=== PATIENT | male | born 1995 | race Hispanic/Latino ===

== ENCOUNTER 2018-10-19 12:42 | Inpatient (IN) | payer OTHER ==
[~2018-10-19] VITALS: Ht 175.3 cm; Wt 96.1 kg
[2018-10-19 13:25] LABS: HEMATOCRIT 46.2 % (42.0-52.0); HEMOGLOBIN 16.1 g/dl (13.5-17.5); MEAN CORPUSCULAR HEMOGLOBIN 30.1 pg (27.0-33.0); MEAN CORPUSCULAR HGB CONC 34.8 g/dl (32.0-36.5); MEAN CORPUSCULAR VOLUME 86.5 fl (80.0-96.0); PLATELET COUNT, AUTOMATED 258 10^3/uL (150-450); RED BLOOD COUNT 5.34 10^6/uL (4.30-6.10); WHITE BLOOD COUNT 4.6 10^3/uL (4.0-10.0)
[2018-10-19 13:55] LABS: ACETAMINOPHEN LEVEL < 2.0 UG/ML (10.0-30.0); ALBUMIN 4.5 GM/DL (3.2-5.2); ALT/SGPT 48 U/L (12-78); BILIRUBIN,DIRECT 0.1 MG/DL (0.0-0.2); BILIRUBIN,TOTAL 0.4 MG/DL (0.2-1.0); BLOOD UREA NITROGEN 15 MG/DL (7-18); CALCIUM LEVEL 9.1 MG/DL (8.5-10.1); CARBON DIOXIDE LEVEL 28 MEQ/L (21-32); CHLORIDE LEVEL 107 MEQ/L (98-107); CREATININE FOR GFR 1.09 MG/DL (0.70-1.30); ETHYL ALCOHOL (ETHANOL) < 0.003 % (0.000-0.010); GLOMERULAR FILTRATION RATE > 60.0 (>60); GLUCOSE, FASTING 97 MG/DL (70-100); POTASSIUM SERUM 4.4 MEQ/L (3.5-5.1); SALICYLATE LEVEL < 1.7 MG/DL (5.0-30.0); SODIUM LEVEL 140 MEQ/L (136-145); TOTAL PROTEIN 7.8 GM/DL (6.4-8.2)
[2018-10-19 13:56] LABS: AMPHETAMINES LEVEL URINE NEGATIVE (NEGATIVE); BARBITURATES URINE NEGATIVE (NEGATIVE); BENZODIAZEPINES URINE NEGATIVE (NEGATIVE); CANNABINOIDS URINE NEGATIVE (NEGATIVE); COCAINE METABOLITE URINE NEGATIVE (NEGATIVE); METHADONE URINE NEGATIVE (NEGATIVE); OPIATES URINE NEGATIVE (NEGATIVE); PHENCYCLIDINE URINE NEGATIVE (NEGATIVE)
[2018-10-19] MEDS ORDERED: ACETAMINOPHEN TAB 650MG DOSE (2X325MG) PO PRN (17:15)
[2018-10-19] MEDS ORDERED: MOM 30ML SUSPENSION UDC PO PRN (17:15)
[2018-10-19] MEDS ORDERED: MAALOX 30 ML SUSP *UDC PO PRN (17:15)
[2018-10-19 18:59] VITALS: BP 130/78
[2018-10-20 06:31] VITALS: BP 120/66
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
--- NOTE | 2018-10-20 14:34 | HPEPDOC ---
General Date of Admission October 19, 2018 at 17:01 Attending Physician: SAILAJA VALLEJO MD Chief Complaint The patient is a 23-year-old male admitted with a reason for visit of Unspe cified Depressive Disorder. History of Present Illness Patient is a 23-year-old male, past medical history significant for obesity, depression, anxiety, admitted for suicidal ideation. Patient states he was driving home and kept thinking of going to a gun store to get a rifle to shoot himself, He was admitted to mental health for further evaluation and management. On evaluation, he is quite calm and able to maintain good conversation, he admits his thoughts although concerning are common occurrence for him. Home Medications No Active Prescriptions or Reported Meds Allergies Coded Allergies: No Known Allergies (Verified Allergy, Unknown, 10/19/18) Past Medical History Medical History Obesity Depression Anxiety Family History Significant Family History: No pertinent family hx Social History * Smoker: Denies Alcohol: Denies Drugs: denies A-FIB/CHADSVASC A-FIB History Current/History of A-Fib/PAF?: No Current Oral Anticoagulant The: No Review of Systems Other systems A 10 point pertinent review of systems was completed, negative except as stated in history of present illness Physical Examination Other physical findings General: NAD. Skin: Warm, dry, intact. Cardiovascular: Regular rate and rhythm, no MRG, no jugular venous distention, no edema. Respiratory:CTAB, no accessory muscle use noted. Abdomen: Bowel sounds +, no tenderness, no distention Musculoskeletal: No joint deformities, Neurologic: CN 2-12 grossly intact, alert and oriented 3 Psychiatric: Appropriate mood and affect, no anxiety or agitation. Vital Signs Vital Signs Date Time Temp Pulse Resp B/P (MAP) Pulse Ox O2 Delivery O2 Flow Rate FiO2 10/20/18 06:31 97.8 52 14 120/66 (84) 10/19/18 12:51 100 Room Air Assessment/Plan Obesity --Therapeutic lifestyle changes discussed Generalized anxiety disorder -Management by primary team Suicidal ideation -Management per primary team Plan / VTE VTE Prophylaxis Ordered?: No VTE Exclusion Pharmacological: At Low Risk for VTE JOE COTA October 20, 2018 14:34
[2018-10-20 18:25] VITALS: BP 132/65
[2018-10-20] MEDS: traZODone 50 MG TAB PO PRN (22:49)
[2018-10-21 06:29] VITALS: BP 137/65
[2018-10-21 18:00] VITALS: BP 135/73
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
[2018-10-21] MEDS: traZODone 50 MG TAB PO PRN (22:34)
[2018-10-22 06:37] VITALS: BP 106/57
[2018-10-22] MEDS ORDERED: SERTRALINE HCL 50 MG TAB PO ONE (14:45)
[2018-10-22 18:00] VITALS: BP 142/82
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
[2018-10-22] MEDS ORDERED: ARIPiprazole 2 MG TAB PO SCH (21:00)
[2018-10-22] MEDS: traZODone 50 MG TAB PO PRN (22:15)
[2018-10-23 06:46] VITALS: BP 110/53
[2018-10-23 10:20] VITALS: BP 131/79
[2018-10-23 18:15] VITALS: BP 127/64
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
[2018-10-23] MEDS: traZODone 50 MG TAB PO PRN (22:08)
[2018-10-23] MEDS: SERTRALINE HCL 50 MG TAB PO SCH (22:09)
[2018-10-24 06:59] VITALS: BP 114/59
[2018-10-24] MEDS: ARIPiprazole 2 MG TAB PO SCH (09:33)
[2018-10-24 18:00] VITALS: BP 139/65
--- NOTE | 2018-10-24 20:47 | MHIPNPDOC ---
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 He states that he now feels like he has no purpose & repeatedly used the word "trapped" when describing his life and how he feels. His supportive is here & both agree that they have a good marriage & he denies that their relationship is a source of his stress. He reports having plans for either causing a MVC [place], or purchasing a hunting rifle & killing himself via GSW. Patient reports being from [place], [place] & that [facility] was his first duty station. He says that he was very unhappy here & requested a year in [facility], just to get out. He states that following his year in [facility], instead of a new duty station, he was returned to [place]. This occured 3 months ago & admits that his depression & anxiety became evident again while in [facility], prior to his return here. In addition to the depression & SI, he describes suffering from significant anxiety. This included frequently awakening at night during sleep, allowing his phone battery to so that his unit can't reach him on the weekend & general anxiety that comes & goes." VITAL SIGNS: See below. NEW TEST RESULTS: See below CURRENT MEDICATIONS: See below. MENTAL STATUS EXAMINATION: Patient is a 23-year old male, who is alert, cooperative, dressed in hospital clothes, looking tired Speech: Is normal rate, tone and volume. Spontaneous and fluent, more talkative Language skills are fair Thought processes including: intact. Thought content:anxious and depressive thoughts, suicidal thoughts, paranoia, ideas of reference Description of abnormal or psychotic thoughts: Suicidal ideation, paranoid thoughts. Denies auditory hallucinations today Judgment: fair Insight: fair Orientation: x 3 Recent and remote memory: intact Attention span and concentration: fair Language: normal Fund of knowledge: average Mood: depressed/anxious Affect: congruent with mood, depressed DIAGNOSES: 1. Major Depressive Disorder, severe, recurrent with psychosis 2. ETOH use disorder 3. Other specified trauma/stressor disorder ASSESSMENT: The patient tells me today that he is not experiencing any emotions. He says this is nothing new. This is how he has felt for years. Sometimes he feels very depressed, sometimes he feels very anxious, sometimes he feels angry and sometimes he feels nothing. He has been feeling like that over the years, he thinks the first time that he felt nothing, was when he was 19 years old, when he stopped talking to his father. He questions his 's loyalty and faithfulness. He says that last night he was thinking about what would he do if she would be unfaithful. I ask him why is he having those thoughts and he tells me that before they got she cheated on him and he told her that he wou ldn't tolerate this. I told him that I spoke with one of his Nurses, Lili, yesterday about his because it is important for her to learn what depression is about and how to deal with it. He said that last night he talked to his about the booklet and both read some of it. MANAGEMENT PLAN: As above TIME SPENT: 20 minutes. Vital Signs Vital Signs Date Time Temp Pulse Resp B/P (MAP) Pulse Ox O2 Delivery O2 Flow Rate FiO2 10/24/18 18:00 99.5 60 16 139/65 (89) 10/24/18 09:03 Room Air 10/19/18 12:51 100 Current Medications Current Medications Acetaminophen (Tylenol Tab) 650 mg Q6HP PRN PO HEADACHE or DISCOMFORT; Start 10/19/18 at 17:15 Al Hydrox/Mg Hydrox/Simethicone (Mylanta) 30 ml Q4HP PRN PO HEARTBURN/INDIGESTION; Start 10/19/18 at 17:15 Aripiprazole (AbiLIFY) 2 mg QAM PO Last administered on 10/24/18at 09:33; Start 10/24/18 at 09:00 Aripiprazole (AbiLIFY) 2 mg QHS PO Last administered on 10/22/18at 22:15; Start 10/22/18 at 21:00; Stop 10/23/18 at 14:46; Status DC Home Med (Med Rec Complete!) ASDIRECTED XX ; Start 10/19/18 at 18:30; Stop 10/19/18 at 18:33; Status DC Magnesium Hydroxide (Milk Of Magnesia) 30 ml DAILYPRN PRN PO CONSTIPATION; Start 10/19/18 at 17:15 Sertraline HCl (Zoloft) 50 mg QHS PO Last administered on 10/23/18at 22:09; Start 10/22/18 at 21:00; Status Future hold Trazodone HCl (Desyrel) 50 mg QHSP PRN PO INSOMNIA Last administered on 10/23/18at 22:08; Start 10/19/18 at 17:15 Allergies Coded Allergies: No Known Allergies (Verified Allergy, Unknown, 10/19/18) GONZALEZ GLOVER MD October 24, 2018 20:47
[2018-10-24] MEDS: SERTRALINE HCL 50 MG TAB PO SCH (21:40)
[2018-10-24] MEDS: traZODone 50 MG TAB PO PRN (21:40)
[2018-10-25 07:18] VITALS: BP 112/66
[2018-10-25] MEDS: ARIPiprazole 2 MG TAB PO SCH (09:05)
[2018-10-25 18:40] VITALS: BP 138/74
--- NOTE | 2018-10-25 19:31 | MHIPNPDOC ---
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 He states that he now feels like he has no purpose & repeatedly used the word "trapped" when describing his life and how he feels. His supportive is here & both agree that they have a good marriage & he denies that their relationship is a source of his stress. He reports having plans for either causing a MVC [place], or purchasing a hunting rifle & killing himself via GSW. Patient reports being from [place], [place] & that [facility] was his first duty station. He says that he was very unhappy here & requested a year in [facility], just to get out. He states that following his year in [facility], instead of a new duty station, he was returned to [place]. This occured 3 months ago & admits that his depression & anxiety became evident again while in [facility], prior to his return here. In addition to the depression & SI, he describes suffering from significant anxiety. This included frequently awakening at night during sleep, allowing his phone battery to so that his unit can't reach him on the weekend & general anxiety that comes & goes." VITAL SIGNS: See below. NEW TEST RESULTS: See below CURRENT MEDICATIONS: See below. MENTAL STATUS EXAMINATION: Patient is a 23-year old male, who is alert, cooperative, dressed in hospital clothes, looking tired Speech: Is normal rate, tone and volume. Spontaneous and fluent, more talkative Language skills are fair Thought processes including: depressed, linear Thought content:anxious and depressive thoughts, suicidal thoughts, paranoia, ideas of reference Description of abnormal or psychotic thoughts: Suicidal ideation, paranoid thoughts. Denies AV hallucinations Judgment: poor Insight: poor Orientation: x 3 Recent and remote memory: intact Attention span and concentration: fair Language: normal Fund of knowledge: average Mood: depressed/anxious Affect: congruent with mood, depressed DIAGNOSES: 1. Major Depressive Disorder, severe, recurrent with psychosis 2. ETOH use disorder 3. Other specified trauma/stressor disorder ASSESSMENT: The patient says that he has been considering to go for longterm but he is waiting to talk about that with his . He says, once again, that he fears the way she is going to take this. He says that he has found in the past as if he could not have a conversation with her because he felt she didn't understand him and at the same time, he fears his reactions when he is with her because he has destroyed 3 I-phones ( on different occasions )when he has been arguing with her. He tells me now that he fears it could get out of control, that frequently he is able to leave the house and go for a walk before losing control but he is afraid he might not be able to do it all the time. He mentios that at times he has had a cocky attitude, just like his father did and this proposal manager writer asked him why would he want to have a cocky attitude like his dad if his father was not exactly a great dad or a great father? After that statement, he says that, yes, he shouldn't act like that. He told this proposal manager writer that he has had shopping sprees when he argues with his . The most recent one was for $1400.00 where he bought things he really didn't need and then, he got into trouble because they were sort of money. He says his doesn't work but she used to work before they got , she used to do nails but now that she is not working, she asks for the product (nail uzbek, etc.) and it gets mailed to her, she does her nails, takes pictures of her nails and uploads them on to [employer]. He mentions that she has [phone] followers on [employer]. He syas that she was very succesful before, she used to drive a BMW, "she did better than me". The patient continues to be very depressed, pretty hopless, helpless, paranoid, with SI. MANAGEMENT PLAN: As above TIME SPENT: 20 minutes. Vital Signs Vital Signs Date Time Temp Pulse Resp B/P (MAP) Pulse Ox O2 Delivery O2 Flow Rate FiO2 10/25/18 18:40 99.4 68 16 138/74 (95) 10/25/18 08:51 Room Air 10/19/18 12:51 100 Current Medications Current Medications Acetaminophen (Tylenol Tab) 650 mg Q6HP PRN PO HEADACHE or DISCOMFORT; Start 10/19/18 at 17:15 Al Hydrox/Mg Hydrox/Simethicone (Mylanta) 30 ml Q4HP PRN PO HEARTBURN/INDIGESTION; Start 10/19/18 at 17:15 Aripiprazole (AbiLIFY) 2 mg QAM PO Last administered on 10/25/18at 09:05; Start 10/24/18 at 09:00; Stop 10/25/18 at 15:03; Status DC Aripiprazole (AbiLIFY) 2 mg QHS PO Last administered on 10/22/18at 22:15; Start 10/22/18 at 21:00; Stop 10/23/18 at 14:46; Status DC Aripiprazole (AbiLIFY) 2.5 mg BID PO ; Start 10/25/18 at 21:00 Home Med (Med Rec Complete!) ASDIRECTED XX ; Start 10/19/18 at 18:30; Stop 10/19/18 at 18:33; Status DC Magnesium Hydroxide (Milk Of Magnesia) 30 ml DAILYPRN PRN PO CONSTIPATION; Start 10/19/18 at 17:15 Sertraline HCl (Zoloft) 50 mg QHS PO Last administered on 10/24/18at 21:40; Start 10/22/18 at 21:00; Stop 10/25/18 at 15:03; Status DC Sertraline HCl (Zoloft) 75 mg QHS PO ; Start 10/25/18 at 21:00 Trazodone HCl (Desyrel) 50 mg QHSP PRN PO INSOMNIA Last administered on 10/24/18at 21:40; Start 10/19/18 at 17:15 Allergies Coded Allergies: No Known Allergies (Verified Allergy, Unknown, 10/19/18) GONZALEZ GLOVER MD October 25, 2018 19:31
[2018-10-25] MEDS ORDERED: ARIPiprazole 2 MG TAB PO SCH (21:00)
[2018-10-25] MEDS: SERTRALINE HCL 50 MG TAB PO SCH (22:14)
[2018-10-25] MEDS: traZODone 50 MG TAB PO PRN (23:01)
[2018-10-26 06:41] VITALS: BP 106/54
[2018-10-26] MEDS: PILL CRUSHER/CUTTER 1 EACH XX PRN (09:53)
--- NOTE | 2018-10-26 16:29 | MHIPNPDOC ---
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 He states that he now feels like he has no purpose & repeatedly used the word "trapped" when describing his life and how he feels. His supportive is here & both agree that they have a good marriage & he denies that their relationship is a source of his stress. He reports having plans for either causing a MVC [place], or purchasing a hunting rifle & killing himself via GSW. Patient reports being from [place], [place] & that [facility] was his first duty station. He says that he was very unhappy here & requested a year in [facility], just to get out. He states that following his year in [facility], instead of a new duty station, he was returned to [place]. This occured 3 months ago & admits that his depression & anxiety became evident again while in [facility], prior to his return here. In addition to the depression & SI, he describes suffering from significant anxiety. This included frequently awakening at night during sleep, allowing his phone battery to so that his unit can't reach him on the weekend & general anxiety that comes & goes." VITAL SIGNS: See below. NEW TEST RESULTS: See below CURRENT MEDICATIONS: See below. MENTAL STATUS EXAMINATION: Patient is a 23-year old male, who is alert, cooperative, dressed in hospital clothes, looking tired Speech: Is normal rate, tone and volume. Spontaneous and fluent, more talkative Language skills are fair Thought processes including: depressed, linear Thought content:anxious and depressive thoughts, suicidal thoughts, paranoia, ideas of reference Description of abnormal or psychotic thoughts: Suicidal ideation, paranoid thoughts. Denies AV hallucinations Judgment: poor Insight: poor Orientation: x 3 Recent and remote memory: intact Attention span and concentration: fair Language: normal Fund of knowledge: average Mood: depressed/anxious Affect: congruent with mood, depressed DIAGNOSES: 1. Major Depressive Disorder, severe, recurrent with psychosis 2. ETOH use disorder 3. Other specified trauma/stressor disorder ASSESSMENT: The patient continues to report feeling "nothing", and he means no pain, no anger, no anxiety, no irritability, no depression. He knows in his mind that he is very sick but for 3 days in a row he has denied any type of feelings. He says he was able to sleep well for most of the night. He woke up at times, his appetite is still not at his best. He says he continues to feel helpless, hopeless, worthless, continues to endorse guilty feelings. He denies AV hallucinations and denies thought delusions. Health Assistant Danis Hauser spoke with the patient and indicated his [facility]A and [facility] accepted him going for long-term treatment. He will be going to [place] in [place] but there's no date yet, because his JAMILA still have to make flight arrangements. Patient was pleased to hear the news. MANAGEMENT PLAN: As above TIME SPENT: 20 minutes. Vital Signs Vital Signs Date Time Temp Pulse Resp B/P (MAP) Pulse Ox O2 Delivery O2 Flow Rate FiO2 10/26/18 06:41 99.3 68 12 106/54 (71) 10/25/18 08:51 Room Air Current Medications Current Medications Acetaminophen (Tylenol Tab) 650 mg Q6HP PRN PO HEADACHE or DISCOMFORT; Start 10/19/18 at 17:15 Al Hydrox/Mg Hydrox/Simethicone (Mylanta) 30 ml Q4HP PRN PO HEARTBURN/INDIGESTION; Start 10/19/18 at 17:15 Aripiprazole (AbiLIFY) 2 mg QAM PO Last administered on 10/25/18at 09:05; Start 10/24/18 at 09:00; Stop 10/25/18 at 15:03; Status DC Aripiprazole (AbiLIFY) 2 mg QHS PO Last administered on 10/22/18at 22:15; Start 10/22/18 at 21:00; Stop 10/23/18 at 14:46; Status DC Aripiprazole (AbiLIFY) 2.5 mg BID PO Last administered on 10/25/18at 22:14; Start 10/25/18 at 21:00; Stop 10/26/18 at 09:36; Status DC Aripiprazole (AbiLIFY) 2.5 mg BID PO Last administered on 10/26/18at 09:54; Start 10/26/18 at 09:00 Home Med (Med Rec Complete!) ASDIRECTED XX ; Start 10/19/18 at 18:30; Stop 10/19/18 at 18:33; Status DC Magnesium Hydroxide (Milk Of Magnesia) 30 ml DAILYPRN PRN PO CONSTIPATION; Start 10/19/18 at 17:15 Sertraline HCl (Zoloft) 50 mg QHS PO Last administered on 10/24/18at 21:40; Start 10/22/18 at 21:00; Stop 10/25/18 at 15:03; Status DC Sertraline HCl (Zoloft) 75 mg QHS PO Last administered on 10/25/18at 22:14; Start 10/25/18 at 21:00 Trazodone HCl (Desyrel) 50 mg QHSP PRN PO INSOMNIA Last administered on 9at 23:01; Start 10/19/18 at 17:15 Allergies Coded Allergies: No Known Allergies (Verified Allergy, Unknown, 10/19/18) GONZALEZ GLOVER MD October 26, 2018 16:29
[2018-10-26 18:00] VITALS: BP 157/89
[2018-10-26] MEDS ORDERED: BENZTROPINE 2 MG TAB PO ONE (20:00)
[2018-10-26] MEDS: SERTRALINE HCL 50 MG TAB PO SCH (20:38)
[2018-10-26] MEDS: traZODone 50 MG TAB PO PRN (22:01)
[2018-10-27 06:48] VITALS: BP 111/65
[2018-10-27] MEDS: hydrOXYzine 50 MG TAB PO PRN (13:28)
[2018-10-27 18:00] VITALS: BP 143/66
--- NOTE | 2018-10-27 18:08 | MHIPNPDOC ---
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 He states that he now feels like he has no purpose & repeatedly used the word "trapped" when describing his life and how he feels. His supportive is here & both agree that they have a good marriage & he denies that their relationship is a source of his stress. He reports having plans for either causing [place], or purchasing a hunting rifle & killing himself via GSW. Patient reports being from [place], [place] & that [facility] was his first duty station. He says that he was very unhappy here & requested a year in [facility], just to get out. He states that following his year in [facility], instead of a new duty station, he was returned to [place]. This occured 3 months ago & admits that his depression & anxiety became evident again while in [facility], prior to his return here. In addition to the depression & SI, he describes suffering from significant anxiety. This included frequently awakening at night during sleep, allowing his phone battery to so that his unit can't reach him on the weekend & general anxiety that comes & goes." VITAL SIGNS: See below. NEW TEST RESULTS: See below CURRENT MEDICATIONS: See below. MENTAL STATUS EXAMINATION: Patient is a 23-year old male, who is alert, cooperative, dressed in hospital clothes, looking tired Speech: Is normal rate, tone and volume. Spontaneous and fluent, more talkative Language skills are fair Thought processes including: depressed, linear Thought content:anxious and depressive thoughts, suicidal thoughts, paranoia, ideas of reference Description of abnormal or psychotic thoughts: Suicidal ideation, paranoid thoughts. Denies AV hallucinations Judgment: poor Insight: poor Orientation: x 3 Recent and remote memory: intact Attention span and concentration: fair Language: normal Fund of knowledge: average Mood: depressed/anxious Affect: congruent with mood, depressed DIAGNOSES: 1. Major Depressive Disorder, severe, recurrent with psychosis 2. ETOH use disorder 3. Other specified trauma/stressor disorder ASSESSMENT: The mental status exam has not changed much since yesterday. The patient reports he took an Atarax tablet of 50 mgs some time ago and he feels very sleepy. He tells me his came to visit last night and they have read the booklet about men and depression, "she understands but yet she doesn't because she would prefer me to go to [employer] to get cured". We spoke about [employer], [place] and spirituality and the role it plays when he feel ill and I eplian that is a valuable tool but it is not enough. People should still take medications, go to therapy, have a good social and family network and rely on [employer]/[place] spirituality. MANAGEMENT PLAN: will increase Sertraline to 100 mgs Po QHS TIME SPENT: 20 minutes. Vital Signs Vital Signs Date Time Temp Pulse Resp B/P (MAP) Pulse Ox O2 Delivery O2 Flow Rate FiO2 10/27/18 06:48 98.0 69 14 111/65 (80) 10/25/18 08:51 Room Air Current Medications Current Medications Acetaminophen (Tylenol Tab) 650 mg Q6HP PRN PO HEADACHE or DISCOMFORT; Start 10/19/18 at 17:15 Al Hydrox/Mg Hydrox/Simethicone (Mylanta) 30 ml Q4HP PRN PO HEARTBURN/INDIGESTION; Start 10/19/18 at 17:15 Aripiprazole (AbiLIFY) 2 mg QAM PO Last administered on 10/25/18at 09:05; Start 10/24/18 at 09:00; Stop 10/25/18 at 15:03; Status DC Aripiprazole (AbiLIFY) 2 mg QHS PO Last administered on 10/22/18at 22:15; Start 10/22/18 at 21:00; Stop 10/23/18 at 14:46; Status DC Aripiprazole (AbiLIFY) 2.5 mg BID PO Last administered on 10/25/18at 22:14; Start 10/25/18 at 21:00; Stop 10/26/18 at 09:36; Status DC Aripiprazole (AbiLIFY) 2.5 mg BID PO Last administered on 10/27/18at 08:46; Start 10/26/18 at 09:00 Home Med (Med Rec Complete!) ASDIRECTED XX ; Start 10/19/18 at 18:30; Stop 10/19/18 at 18:33; Status DC Hydroxyzine HCl (Atarax) 50 mg Q4HP PRN PO ANXIETY/AGITATION Last administered on 10/27/18 13:28; Start 10/27/18 at 13:15 Magnesium Hydroxide (Milk Of Magnesia) 30 ml DAILYPRN PRN PO CONSTIPATION; Start 10/19/18 at 17:15 Sertraline HCl (Zoloft) 50 mg QHS PO Last administered on 10/24/18at 21:40; Start 10/22/18 at 21:00; Stop 10/25/18 at 15:03; Status DC Sertraline HCl (Zoloft) 75 mg QHS PO Last administered on 10/26/18at 20:38; Start 10/25/18 at 21:00 Trazodone HCl (Desyrel) 50 mg QHSP PRN PO INSOMNIA Last administered on 10/26/18 22:01; Start 10/19/18 at 17:15 Allergies Coded Allergies: No Known Allergies (Verified Allergy, Unknown, 10/19/18) GONZALEZ GLOVER MD October 27, 2018 18:08
[2018-10-27] MEDS: SERTRALINE 100 MG TAB PO SCH (21:14)
[2018-10-28 06:38] VITALS: BP 134/84
[2018-10-28 18:13] VITALS: BP 142/77
[2018-10-28] MEDS: SERTRALINE 100 MG TAB PO SCH (21:57)
[2018-10-28] MEDS: traZODone 50 MG TAB PO PRN (23:20)
[2018-10-29 06:53] VITALS: BP 133/56
[2018-10-29 17:27] VITALS: BP 149/83
[2018-10-29] MEDS: PILL CRUSHER/CUTTER 1 EACH XX PRN (20:35)
[2018-10-29] MEDS: SERTRALINE 100 MG TAB PO SCH (20:37)
[2018-10-29] MEDS: traZODone 50 MG TAB PO PRN (20:37)
[2018-10-30 06:52] VITALS: BP 147/80
[2018-10-30] MEDS: PILL CRUSHER/CUTTER 1 EACH XX PRN ×2 (09:27→21:37)
[2018-10-30 11:48] VITALS: BP 130/65
--- NOTE | 2018-10-30 16:00 | MHIPNPDOC ---
[facility] Progress Note Progress Note DATE OF SERVICE: 10/30/18 HISTORY: Patient is a 22 -year-old , male, paranoid schizophrenia and [facility]18 who self presented to ED stating he had a grand mal seizure on his way in that no one saw. Pt per ED very bizarre making statements such as "Alfredo and [place] went thru was... I dream of people killing themselves or I'm a zombie... my body is going thru serious puzzleations... I smell blood." Also endorsed suicidal thoughts with plans to either chop his head off, cut his arm and bleed out, or hold his breath a pass out." He was a very poor historian but did admit he need to reapply for disability as has no income and asking for more supportive and assisting housing as feels unable to care for himself properly. VITAL SIGNS: See below. NEW TEST RESULTS: See below CURRENT MEDICATIONS: See below. MENTAL STATUS EXAMINATION: Patient is a 23-year old male, who is alert, cooperative, dressed in hospital clothes, looking less tired than before Speech: Is normal rate, tone and volume. Spontaneous and fluent, more talkative Language skills are fair Thought processes including: depressed, linear Thought content: depressive/anxious thoughts, he still endorses paranoid and suicidal ideation without a plan (this SI is passive, less intense, less frequent) Description of abnormal or psychotic thoughts: Passive suicidal ideation, some paranoid thoughts. Denies AV hallucinations Judgment: poor Insight: poor Orientation: x 3 Recent and remote memory: intact Attention span and concentration: fair Language: normal Fund of knowledge: average Mood: depressed/anxious Affect: congruent with mood, depressed DIAGNOSES: 1. Major Depressive Disorder, severe, recurrent with psychosis 2. ETOH use disorder 3. Other specified trauma/stressor disorder ASSESSMENT: The patient is having a good response to medications but he says that he has been yawning and he doesn't know which medication is causing that. I explained that medications are causing him to feel relaxed/sleepy and this is causing the yawning. I won't increase his medications at this time. 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 MANAGEMENT PLAN: will increase Sertraline to 100 mgs Po QHS TIME SPENT: 20 minutes. Vital Signs Vital Signs Date Time Temp Pulse Resp B/P (MAP) Pulse Ox O2 Delivery O2 Flow Rate FiO2 10/30/18 11:48 60 18 130/65 (86) 10/30/18 06:52 97.5 10/25/18 08:51 Room Air Current Medications Current Medications Acetaminophen (Tylenol Tab) 650 mg Q6HP PRN PO HEADACHE or DISCOMFORT; Start 10/19/18 at 17:15 Al Hydrox/Mg Hydrox/Simethicone (Mylanta) 30 ml Q4HP PRN PO HEARTBURN/INDIGESTION; Start 10/19/18 at 17:15 Aripiprazole (AbiLIFY) 2 mg QAM PO Last administered on 10/25/18at 09:05; Start 10/24/18 at 09:00; Stop 10/25/18 at 15:03; Status DC Aripiprazole (AbiLIFY) 2 mg QHS PO Last administered on 10/22/18at 22:15; Start 10/22/18 at 21:00; Stop 10/23/18 at 14:46; Status DC Aripiprazole (AbiLIFY) 2.5 mg BID PO Last administered on 10/25/18at 22:14; Start 10/25/18 at 21:00; Stop 10/26/18 at 09:36; Status DC Aripiprazole (AbiLIFY) 2.5 mg BID PO Last administered on 10/30/18at 09:27; Start 10/26/18 at 09:00 Home Med (Med Rec Complete!) ASDIRECTED XX ; Start 10/19/18 at 18:30; Stop 10/19/18 at 18:33; Status DC Hydroxyzine HCl (Atarax) 50 mg Q4HP PRN PO ANXIETY/AGITATION Last administered on 10/27/18at 13:28; Start 10/27/18 at 13:15 Magnesium Hydroxide (Milk Of Magnesia) 30 ml DAILYPRN PRN PO CONSTIPATION; Start 10/19/18 at 17:15 Sertraline HCl (Zoloft) 50 mg QHS PO Last administered on 10/24/18at 21:40; Start 10/22/18 at 21:00; Stop 10/25/18 at 15:03; Status DC Sertraline HCl (Zoloft) 75 mg QHS PO Last administered on 10/26/18at 20:38; S tart 10/25/18 at 21:00; Stop 10/27/18 at 18:08; Status DC Sertraline HCl (Zoloft) 100 mg QHS PO Last administered on 10/29/18at 20:37; Start 10/27/18 at 21:00 Trazodone HCl (Desyrel) 50 mg QHSP PRN PO INSOMNIA Last administered on 10/29/18at 20:37; Start 10/19/18 at 17:15 Allergies Coded Allergies: No Known Allergies (Verified Allergy, Unknown, 10/19/18) GONZALEZ GLOVER MD October 30, 2018 15:46
[2018-10-30 18:00] VITALS: BP 128/68
[2018-10-30] MEDS: traZODone 50 MG TAB PO PRN (21:37)
[2018-10-30] MEDS: SERTRALINE 100 MG TAB PO SCH (21:37)
[2018-10-31 06:40] VITALS: BP 124/57
[2018-10-31] MEDS: PILL CRUSHER/CUTTER 1 EACH XX PRN (08:39)
[2018-10-31 18:00] VITALS: BP 130/72
--- NOTE | 2018-10-31 18:50 | MHIPNPDOC ---
[facility] Progress Note Progress Note DATE OF SERVICE: 10/31/18 HISTORY: Patient is a 22 -year-old , male, paranoid schizophrenia and multiple [facility] admissions last 08/27/18 who self presented to ED stating he had a grand mal seizure on his way in that no one saw. Pt per ED very bizarre making statements such as "Alfredo and [place] went thru was... I dream of people killing themselves or I'm a zombie... my body is going thru serious puzzleations... I smell blood." Also endorsed suicidal thoughts with plans to either chop his head off, cut his arm and bleed out, or hold his breath a pass out." He was a very poor historian but did admit he need to reapply for disability as has no income and asking for more supportive and assisting housing as feels unable to care for himself properly. VITAL SIGNS: See below. NEW TEST RESULTS: See below CURRENT MEDICATIONS: See below. MENTAL STATUS EXAMINATION: Patient is a 23-year old male, who is alert, cooperative, dressed in hospital clothes, looking less tired than before Speech: Is normal rate, tone and volume. Spontaneous and fluent, more talkative Language skills are fair Thought processes including: depressed, linear Thought content: depressive/anxious thoughts, he still endorses paranoid and suicidal ideation without a plan (this SI is passive, less intense, less frequent) Description of abnormal or psychotic thoughts: Passive suicidal ideation, some paranoid thoughts. Denies AV hallucinations Judgment: poor Insight: poor Orientation: x 3 Recent and remote memory: intact Attention span and concentration: fair Language: normal Fund of knowledge: average Mood: depressed/anxious Affect: congruent with mood, depressed DIAGNOSES: 1. Major Depressive Disorder, severe, recurrent with psychosis 2. ETOH use disorder 3. Other specified trauma/stressor disorder ASSESSMENT: The patient Mental Status Exam has not changed much since yesterday. the patient is still depressed and anxious, he is improved but not to the point that one can consider him safe. He still has issues about going back to the [employer] and we discussed that subject today because he has to go back and he has to learn how to cope with it but the patient doesn't have healthy coping skills, given the fact that he has been depressed for a long period of time and he has been dragging his depression since childhood. MANAGEMENT PLAN: Will continue with the same treatment plan TIME SPENT: 20 minutes. Vital Signs Vital Signs Date Time Temp Pulse Resp B/P (MAP) Pulse Ox O2 Delivery O2 Flow Rate FiO2 10/31/18 18:00 99.0 65 16 130/72 (91) 10/25/18 08:51 Room Air Current Medications Current Medications Acetaminophen (Tylenol Tab) 650 mg Q6HP PRN PO HEADACHE or DISCOMFORT; Start 10/19/18 at 17:15 Al Hydrox/Mg Hydrox/Simethicone (Mylanta) 30 ml Q4HP PRN PO HEARTBURN/INDIGESTION; Start 10/19/18 at 17:15 Aripiprazole (AbiLIFY) 2 mg QAM PO Last administered on 10/25/18at 09:05; Start 10/24/18 at 09:00; Stop 10/25/18 at 15:03; Status DC Aripiprazole (AbiLIFY) 2 mg QHS PO Last administered on 10/22/18at 22:15; Start 10/22/18 at 21:00; Stop 10/23/18 at 14:46; Status DC Aripiprazole (AbiLIFY) 2.5 mg BID PO Last administered on 10/25/18at 22:14; Start 10/25/18 at 21:00; Stop 10/26/18 at 09:36; Status DC Aripiprazole (AbiLIFY) 2.5 mg BID PO Last administered on 10/31/18at 08:39; Start 10/26/18 at 09:00 Home Med (Med Rec Complete!) ASDIRECTED XX ; Start 10/19/18 at 18:30; Stop 10/19/18 at 18:33; Status DC Hydroxyzine HCl (Atarax) 50 mg Q4HP PRN PO ANXIETY/AGITATION Last administered on 10/27/18at 13:28; Start 10/27/18 at 13:15 Magnesium Hydroxide (Milk Of Magnesia) 30 ml DAILYPRN PRN PO CONSTIPATION Last administered on 10/31/18at 13:08; Start 10/19/18 at 17:15 Sertraline HCl (Zoloft) 50 mg QHS PO Last administered on 10/24/18at 21:40; Start 10/22/18 at 21:00; Stop 10/25/18 at 15:03; Status DC Sertraline HCl (Zoloft) 75 mg QHS PO Last administered on 10/26/18at 20:38; Start 10/25/18 at 21:00; Stop 10/27/18 at 18:08; Status DC Sertraline HCl (Zoloft) 100 mg QHS PO Last administered on 10/30/18at 21:37; Start 10/27/18 at 21:00 Trazodone HCl (Desyrel) 50 mg QHSP PRN PO INSOMNIA Last administered on 10/30/18at 21:37; Start 10/19/18 at 17:15 Allergies Coded Allergies: No Known Allergies (Verified Allergy, Unknown, 10/19/18) GONZALEZ GLOVER MD October 31, 2018 18:50
[2018-10-31] MEDS: traZODone 50 MG TAB PO PRN (20:10)
[2018-10-31] MEDS: SERTRALINE 100 MG TAB PO SCH (20:11)
[2018-11-01 07:02] VITALS: BP 145/70
[2018-11-01] MEDS: PILL CRUSHER/CUTTER 1 EACH XX PRN (08:42)
[2018-11-01 18:00] VITALS: BP 125/69
[2018-11-01] MEDS: SERTRALINE 100 MG TAB PO SCH (20:51)
--- NOTE | 2018-11-01 22:33 | MHIPNPDOC ---
[facility] Progress Note Progress Note DATE OF SERVICE: please disregard, wrong edit Vital Signs Vital Signs Date Time Temp Pulse Resp B/P (MAP) Pulse Ox O2 Delivery O2 Flow Rate FiO2 11/01/18 18:00 98.9 77 18 125/69 (87) Current Medications Current Medications Acetaminophen (Tylenol Tab) 650 mg Q6HP PRN PO HEADACHE or DISCOMFORT; Start 10/19/18 at 17:15 Al Hydrox/Mg Hydrox/Simethicone (Mylanta) 30 ml Q4HP PRN PO HEARTBURN/INDIGESTION; Start 10/19/18 at 17:15 Aripiprazole (AbiLIFY) 2 mg QAM PO Last administered on 10/25/18at 09:05; Start 10/24/18 at 09:00; Stop 10/25/18 at 15:03; Status DC Aripiprazole (AbiLIFY) 2 mg QHS PO Last administered on 10/22/18at 22:15; Start 10/22/18 at 21:00; Stop 10/23/18 at 14:46; Status DC Aripiprazole (AbiLIFY) 2.5 mg BID PO Last administered on 10/25/18at 22:14; Start 10/25/18 at 21:00; Stop 10/26/18 at 09:36; Status DC Aripiprazole (AbiLIFY) 2.5 mg BID PO Last administered on 11/01/18at 20:53; Start 10/26/18 at 09:00 Home Med (Med Rec Complete!) ASDIRECTED XX ; Start 10/19/18 at 18:30; Stop 10/19/18 at 18:33; Status DC Hydroxyzine HCl (Atarax) 50 mg Q4HP PRN PO ANXIETY/AGITATION Last administered on 10/27/18 13:28; Start 10/27/18 at 13:15 Magnesium Hydroxide (Milk Of Magnesia) 30 ml DAILYPRN PRN PO CONSTIPATION Last administered on 10/31/18 13:08; Start 10/19/18 at 17:15 Sertraline HCl (Zoloft) 50 mg QHS PO Last administered on 10/24/18at 21:40; Start 10/22/18 at 21:00; Stop 10/25/18 at 15:03; Status DC Sertraline HCl (Zoloft) 75 mg QHS PO Last administered on 10/26/18at 20:38; Start 10/25/18 at 21:00; Stop 10/27/18 at 18:08; Status DC Sertraline HCl (Zoloft) 100 mg QHS PO Last administered on 11/01/18at 20:51; Start 10/27/18 at 21:00 Trazodone HCl (Desyrel) 50 mg QHSP PRN PO INSOMNIA Last administered on 10/31/18at 20:10; Start 10/19/18 at 17:15; Stop 11/01/18 at 19:09; Status DC Trazodone HCl (Desyrel) 100 mg QHSP PRN PO INSOMNIA; Start 11/01/18 at 19:15 Allergies Coded Allergies: No Known Allergies (Verified Allergy, Unknown, 10/19/18) GONZALEZ GLOVER MD November 01, 2018 22:33
--- NOTE | 2018-11-01 22:40 | MHIPNPDOC ---
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 He states that he now feels like he has no purpose & repeatedly used the word "trapped" when describing his life and how he feels. His supportive is here & both agree that they have a good marriage & he denies that their relationship is a source of his stress. He reports having plans for either causing a [place], or purchasing a hunting rifle & killing himself via GSW. Patient reports being from [place], [place] & that [facility] was his first duty station. He says that he was very unhappy here & requested a year in [facility], just to get out. He states that following his year in [facility], instead of a new duty station, he was returned to [place]. This occured 3 months ago & admits that his depression & anxiety became evident again while in [facility], prior to his return here. In addition to the depression & SI, he describes suffering from significant anxiety. This included frequently awakening at night during sleep, allowing his phone battery to so that his unit can't reach him on the weekend & general anxiety that comes & goes." VITAL SIGNS: See below. NEW TEST RESULTS: See below CURRENT MEDICATIONS: See below. MENTAL STATUS EXAMINATION: Patient is a 23-year old male, who is alert, cooperative, dressed in personal clothes, looking tired Speech: Is normal rate, tone and volume. Spontaneous and fluent, more talkative Language skills are fair Thought processes including: depressed, linear Thought content:anxious and depressive thoughts, ideas of reference, fleeting passive SI w/o a plan. Description of abnormal or psychotic thoughts: Passive SI, no HI, no paranoid thoughts today. Denies AV hallucinations Judgment: poor Insight: poor Orientation: x 3 Recent and remote memory: intact Attention span and concentration: fair Language: normal Fund of knowledge: average Mood: depressed/anxious Affect: congruent with mood, depressed DIAGNOSES: 1. Major Depressive Disorder, severe, recurrent with psychosis 2. ETOH use disorder 3. Other specified trauma/stressor disorder ASSESSMENT:The patient is still feeling depressed, he is still having problems understanding that he is depressed, his is still having problems accpting that he is depressed and that he needs more than yazidism to succeed in overcoming his illnes. MANAGEMENT PLAN: will continue with current treatment plan TIME SPENT: 20 minutes. Vital Signs Vital Signs Date Time Temp Pulse Resp B/P (MAP) Pulse Ox O2 Delivery O2 Flow Rate FiO2 11/01/18 18:00 98.9 77 18 125/69 (87) Current Medications Current Medications Acetaminophen (Tylenol Tab) 650 mg Q6HP PRN PO HEADACHE or DISCOMFORT; Start 10/19/18 at 17:15 Al Hydrox/Mg Hydrox/Simethicone (Mylanta) 30 ml Q4HP PRN PO HEARTBURN/INDIGESTION; Start 10/19/18 at 17:15 Aripiprazole (AbiLIFY) 2 mg QAM PO Last administered on 10/25/18at 09:05; Start 10/24/18 at 09:00; Stop 10/25/18 at 15:03; Status DC Aripiprazole (AbiLIFY) 2 mg QHS PO Last administered on 10/22/18at 22:15; Start 10/22/18 at 21:00; Stop 10/23/18 at 14:46; Status DC Aripiprazole (AbiLIFY) 2.5 mg BID PO Last administered on 10/25/18at 22:14; Start 10/25/18 at 21:00; Stop 10/26/18 at 09:36; Status DC Aripiprazole (AbiLIFY) 2.5 mg BID PO Last administered on 11/01/18at 20:53; Start 10/26/18 at 09:00 Home Med (Med Rec Complete!) ASDIRECTED XX ; Start 10/19/18 at 18:30; Stop 10/19/18 at 18:33; Status DC Hydroxyzine HCl (Atarax) 50 mg Q4HP PRN PO ANXIETY/AGITATION Last administered on 10/27/18 13:28; Start 10/27/18 at 13:15 Magnesium Hydroxide (Milk Of Magnesia) 30 ml DAILYPRN PRN PO CONSTIPATION Last administered on 10/31/18 13:08; Start 10/19/18 at 17:15 Sertraline HCl (Zoloft) 50 mg QHS PO Last administered on 10/24/18at 21:40; Start 10/22/18 at 21:00; Stop 10/25/18 at 15:03; Status DC Sertraline HCl (Zoloft) 75 mg QHS PO Last administered on 10/26/18at 20:38; Start 10/25/18 at 21:00; Stop 10/27/18 at 18:08; Status DC Sertraline HCl (Zoloft) 100 mg QHS PO Last administered on 11/01/18at 20:51; Start 10/27/18 at 21:00 Trazodone HCl (Desyrel) 50 mg QHSP PRN PO INSOMNIA Last administered on 10/31/18at 20:10; Start 10/19/18 at 17:15; Stop 11/01/18 at 19:09; Status DC Trazodone HCl (Desyrel) 100 mg QHSP PRN PO INSOMNIA; Start 11/01/18 at 19:15 Allergies Coded Allergies: No Known Allergies (Verified Allergy, Unknown, 10/19/18) GONZALEZ GLOVER MD November 01, 2018 22:40
--- NOTE | 2018-11-01 22:46 | MHIPNPDOC ---
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 He states that he now feels like he has no purpose & repeatedly used the word "trapped" when describing his life and how he feels. His supportive is here & both agree that they have a good marriage & he denies that their relationship is a source of his stress. He reports having plans for either causing a [place], or purchasing a hunting rifle & killing himself via [place]. Patient reports being from [place], [place] & that [facility] was his first duty station. He says that he was very unhappy here & requested a year in [facility], just to get out. He states that following his year in [facility], instead of a new duty station, he was returned to [place]. This occured 3 months ago & admits that his depression & anxiety became evident again while in [facility], prior to his return here. In addition to the depression & SI, he describes suffering from significant anxiety. This included frequently awakening at night during sleep, allowing his phone battery to so that his unit can't reach him on the weekend & general anxiety that comes & goes." VITAL SIGNS: See below. NEW TEST RESULTS: See below CURRENT MEDICATIONS: See below. MENTAL STATUS EXAMINATION: Patient is a 23-year old male, who is alert, cooperative, dressed in personal clothes, looking tired Speech: Is normal rate, tone and volume. Spontaneous and fluent, more talkative Language skills are fair Thought processes including: depressed, linear Thought content:anxious and depressive thoughts, ideas of reference, fleeting passive SI w/o a plan. Description of abnormal or psychotic thoughts: Passive SI, no HI, no paranoid thoughts today. Denies AV hallucinations Judgment: poor Insight: poor Orientation: x 3 Recent and remote memory: intact Attention span and concentration: fair Language: normal Fund of knowledge: average Mood: depressed/anxious Affect: congruent with mood, depressed DIAGNOSES: 1. Major Depressive Disorder, severe, recurrent with psychosis 2. ETOH use disorder 3. Other specified trauma/stressor disorder ASSESSMENT:TThe patient's mental status examination has not changed much since yesterday. he patient's came to visit him and apparently they were upset about something. The patient was seen before visiting hours and he was tired, reported feeling depressed, although not as he was previously. Reports some improvement with Zoloft 100 mgs, will wait for some days to increase it to 150 mgs if he would need that dose. MANAGEMENT PLAN: will continue with current treatment plan TIME SPENT: 20 minutes. Vital Signs Vital Signs Date Time Temp Pulse Resp B/P (MAP) Pulse Ox O2 Delivery O2 Flow Rate FiO2 11/01/18 18:00 98.9 77 18 125/69 (87) Current Medications Current Medications Acetaminophen (Tylenol Tab) 650 mg Q6HP PRN PO HEADACHE or DISCOMFORT; Start 10/19/18 at 17:15 Al Hydrox/Mg Hydrox/Simethicone (Mylanta) 30 ml Q4HP PRN PO HEARTBURN/INDIGES TION; Start 10/19/18 at 17:15 Aripiprazole (AbiLIFY) 2 mg QAM PO Last administered on 10/25/18at 09:05; Start 10/24/18 at 09:00; Stop 10/25/18 at 15:03; Status DC Aripiprazole (AbiLIFY) 2 mg QHS PO Last administered on 10/22/18at 22:15; Start 10/22/18 at 21:00; Stop 10/23/18 at 14:46; Status DC Aripiprazole (AbiLIFY) 2.5 mg BID PO Last administered on 10/25/18at 22:14; Start 10/25/18 at 21:00; Stop 10/26/18 at 09:36; Status DC Aripiprazole (AbiLIFY) 2.5 mg BID PO Last administered on 11/01/18at 20:53; Start 10/26/18 at 09:00 Home Med (Med Rec Complete!) ASDIRECTED XX ; Start 10/19/18 at 18:30; Stop 10/19/18 at 18:33; Status DC Hydroxyzine HCl (Atarax) 50 mg Q4HP PRN PO ANXIETY/AGITATION Last administered on 10/27/18at 13:28; Start 10/27/18 at 13:15 Magnesium Hydroxide (Milk Of Magnesia) 30 ml DAILYPRN PRN PO CONSTIPATION Last administered on 10/31/18at 13:08; Start 10/19/18 at 17:15 Sertraline HCl (Zoloft) 50 mg QHS PO Last administered on 10/24/18at 21:40; Start 10/22/18 at 21:00; Stop 10/25/18 at 15:03; Status DC Sertraline HCl (Zoloft) 75 mg QHS PO Last administered on 10/26/18at 20:38; Start 10/25/18 at 21:00; Stop 10/27/18 at 18:08; Status DC Sertraline HCl (Zoloft) 100 mg QHS PO Last administered on 11/01/18at 20:51; Start 10/27/18 at 21:00 Trazodone HCl (Desyrel) 50 mg QHSP PRN PO INSOMNIA Last administered on 10/31/18at 20:10; Start 10/19/18 at 17:15; Stop 11/01/18 at 19:09; Status DC Trazodone HCl (Desyrel) 100 mg QHSP PRN PO INSOMNIA; Start 11/01/18 at 19:15 Allergies Coded Allergies: No Known Allergies (Verified Allergy, Unknown, 10/19/18) GONZALEZ GLOVER MD November 01, 2018 22:46
--- NOTE | 2018-11-01 22:53 | MHIPNPDOC ---
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 He states that he now feels like he has no purpose & repeatedly used the word "trapped" when describing his life and how he feels. His supportive is here & both agree that they have a good marriage & he denies that their relationship is a source of his stress. He reports having plans for either causing [place], or purchasing a hunting rifle & killing himself via GSW. Patient reports being from [place], [place] & that [facility] was his first duty station. He says that he was very unhappy here & requested a year in [facility], just to get out. He states that following his year in [facility], instead of a new duty station, he was returned to [place]. This occured 3 months ago & admits that his depression & anxiety became evident again while in [facility], prior to his return here. In addition to the depression & SI, he describes suffering from significant anxiety. This included frequently awakening at night during sleep, allowing his phone battery to so that his unit can't reach him on the weekend & general anxiety that comes & goes." VITAL SIGNS: See below. NEW TEST RESULTS: See below CURRENT MEDICATIONS: See below. MENTAL STATUS EXAMINATION: Patient is a 23-year old male, who is alert, cooperative, dressed in personal clothes, looking less tired than yesterday. when he becomes very anxious, he can't stop moving his leg Speech: Is normal rate, tone and volume. Spontaneous and fluent, more talkative Language skills are fair Thought processes including: depressed, anxious, linear Thought content:anxious and depressive thoughts, ideas of reference, fleeting passive SI w/o a plan. Description of abnormal or psychotic thoughts: Passive SI, no HI, no paranoid thoughts today. Denies AV hallucinations Judgment: poor Insight: poor Orientation: x 4 Recent and remote memory: intact Attention span and concentration: fair Language: normal Fund of knowledge: average Mood: depressed/anxious Affect: congruent with mood, depressed DIAGNOSES: 1. Major Depressive Disorder, severe, recurrent with psychosis 2. ETOH use disorder 3. Other specified trauma/stressor disorder ASSESSMENT: The patient is very anxious. He requested to speak to me while his present. They want information about bipolar disorder, she thinks she is bipolar because yesterday he was depressed and today he is OK. This racebook writer explained there are other mental illnesses that are very similar to bipolar disorder. He requested an increase in Trazodone because he still has problems falling asleep. This racebook writer increased the dose to 100 mgs PO QHS. Will increase Zoloft to 150 mgs. MANAGEMENT PLAN: will continue with current treatment plan TIME SPENT: 20 minutes. Vital Signs Vital Signs Date Time Temp Pulse Resp B/P (MAP) Pulse Ox O2 Delivery O2 Flow Rate FiO2 11/01/18 18:00 98.9 77 18 125/69 (87) Current Medications Current Medications Acetaminophen (Tylenol Tab) 650 mg Q6HP PRN PO HEADACHE or DISCOMFORT; Start 10/19/18 at 17:15 Al Hydrox/Mg Hydrox/Simethicone (Mylanta) 30 ml Q4HP PRN PO HEARTBURN/INDIGESTION; Start 10/19/18 at 17:15 Aripiprazole (AbiLIFY) 2 mg QAM PO Last administered on 10/25/18at 09:05; Start 10/24/18 at 09:00; Stop 10/25/18 at 15:03; Status DC Aripiprazole (AbiLIFY) 2 mg QHS PO Last administered on 10/22/18at 22:15; Start 10/22/18 at 21:00; Stop 10/23/18 at 14:46; Status DC Aripiprazole (AbiLIFY) 2.5 mg BID PO Last administered on 10/25/18at 22:14; Start 10/25/18 at 21:00; Stop 10/26/18 at 09:36; Status DC Aripiprazole (AbiLIFY) 2.5 mg BID PO Last administered on 11/01/18at 20:53; Start 10/26/18 at 09:00 Home Med (Med Rec Complete!) ASDIRECTED XX ; Start 10/19/18 at 18:30; Stop 10/19/18 at 18:33; Status DC Hydroxyzine HCl (Atarax) 50 mg Q4HP PRN PO ANXIETY/AGITATION Last administered on 10/27/18at 13:28; Start 10/27/18 at 13:15 Magnesium Hydroxide (Milk Of Magnesia) 30 ml DAILYPRN PRN PO CONSTIPATION Last administered on 10/31/18 13:08; Start 10/19/18 at 17:15 Sertraline HCl (Zoloft) 50 mg QHS PO Last administered on 10/24/18at 21:40; Start 10/22/18 at 21:00; Stop 10/25/18 at 15:03; Status DC Sertraline HCl (Zoloft) 75 mg QHS PO Last administered on 10/26/18at 20:38; Start 10/25/18 at 21:00; Stop 10/27/18 at 18:08; Status DC Sertraline HCl (Zoloft) 100 mg QHS PO Last administered on 11/01/18at 20:51; Start 10/27/18 at 21:00 Trazodone HCl (Desyrel) 50 mg QHSP PRN PO INSOMNIA Last administered on 10/31/18 20:10; Start 10/19/18 at 17:15; Stop 11/01/18 at 19:09; Status DC Trazodone HCl (Desyrel) 100 mg QHSP PRN PO INSOMNIA; Start 11/01/18 at 19:15 Allergies Coded Allergies: No Known Allergies (Verified Allergy, Unknown, 10/19/18) GONZALEZ GLOVER MD November 01, 2018 22:52
[2018-11-01] MEDS: traZODone 100 MG TAB PO PRN (22:56)
[2018-11-02 06:25] VITALS: BP 119/57
[2018-11-02 18:00] VITALS: BP 145/79
--- NOTE | 2018-11-02 19:39 | MHIPNPDOC ---
A-FIB/CHADSVASC A-FIB History Current/History of A-Fib/PAF?: No Current Oral Anticoagulant The: No Age/Risk Factor Scoring CHADSVASC: CHADSVASC Response (Comments) Value Age Risk Factor Age < 65 years old 0 Gender Risk Factor Male 0 Hx of CHF No 0 Hx of HTN No 0 Hx of Stroke/TIA/or VTE No 0 Hx of Diabetes No 0 Hx of Vascular Disease No 0 Total 0 Treatment Treatment ordered: NONE Reason Anticoagulant not given: Not indicated/[id number] GONZALEZ GLOVER MD November 02, 2018 19:39
[2018-11-02] MEDS: traZODone 100 MG TAB PO PRN (23:10)
[2018-11-02] MEDS: SERTRALINE HCL 50 MG TAB PO SCH (23:10)
[2018-11-03 07:00] VITALS: BP 116/58
--- NOTE | 2018-11-03 13:38 | MHIPNPDOC ---
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 He states that he now feels like he has no purpose & repeatedly used the word "trapped" when describing his life and how he feels. His supportive is here & both agree that they have a good marriage & he denies that their relationship is a source of his stress. He reports having plans for either causing a [place], or purchasing a hunting rifle & killing himself via GSW. Patient reports being from [place], [place] & that [facility] was his first duty station. He says that he was very unhappy here & requested a year in [facility], just to get out. He states that following his year in [facility], instead of a new duty station, he was returned to [place]. This occured 3 months ago & admits that his depression & anxiety became evident again while in [facility], prior to his return here. In addition to the depression & SI, he describes suffering from significant anxiety. This included frequently awakening at night during sleep, allowing his phone battery to so that his unit can't reach him on the weekend & general anxiety that comes & goes." VITAL SIGNS: See below. NEW TEST RESULTS: See below CURRENT MEDICATIONS: See below. MENTAL STATUS EXAMINATION: Patient is a 23-year old male, who is alert, cooperative, dressed in personal clothes, looking less tired than yesterday. when he becomes very anxious, he can't stop moving his leg Speech: Is normal rate, tone and volume. Spontaneous and fluent, more talkative Language skills are fair Thought processes including: depressed, anxious, linear Thought content:anxious and depressive thoughts, ideas of reference, fleeting passive SI w/o a plan. Description of abnormal or psychotic thoughts: Passive SI, no HI, no paranoid thoughts today. Denies AV hallucinations Judgment: poor Insight: poor Orientation: x 4 Recent and remote memory: intact Attention span and concentration: fair Language: normal Fund of knowledge: average Mood: depressed/anxious Affect: congruent with mood, depressed DIAGNOSES: 1. Major Depressive Disorder, severe, recurrent with psychosis 2. ETOH use disorder 3. Other specified trauma/stressor disorder ASSESSMENT: The patient's mental status exam has not changed much from yesterday. he presented less anxious than he was on the 15, when his was in here adking questions about him being bipolar or not. He said he doesn't find a point of going to groups, so, this sba underwriter told him that he had to go, because alf is groups and intensive therapy, that he has to work on his cognitive distortions otherwise we can send him back to and it wouldn't look good on him if the [employer] notices that he is not making an effort to improve. We have had this conversation before, but he is still non compliant. I will increase his Zoloft to 150 mgs PO daily and Abilify will be increased as well (to 5 mgs PO BID) MANAGEMENT PLAN: As above TIME SPENT: 20 minutes. Vital Signs Vital Signs Date Time Temp Pulse Resp B/P (MAP) Pulse Ox O2 Delivery O2 Flow Rate FiO2 11/03/18 07:00 97.6 65 14 116/58 (77) Current Medications Current Medications Acetaminophen (Tylenol Tab) 650 mg Q6HP PRN PO HEADACHE or DISCOMFORT; Start 10/19/18 at 17:15 Al Hydrox/Mg Hydrox/Simethicone (Mylanta) 30 ml Q4HP PRN PO HEARTBURN/INDIGESTION; Start 10/19/18 at 17:15 Aripiprazole (AbiLIFY) 2 mg QAM PO Last administered on 10/25/18at 09:05; Start 10/24/18 at 09:00; Stop 10/25/18 at 15:03; Status DC Aripiprazole (AbiLIFY) 2 mg QHS PO Last administered on 10/22/18at 22:15; Start 10/22/18 at 21:00; Stop 10/23/18 at 14:46; Status DC Aripiprazole (AbiLIFY) 2.5 mg BID PO Last administered on 10/25/18at 22:14; Start 10/25/18 at 21:00; Stop 10/26/18 at 09:36; Status DC Aripiprazole (AbiLIFY) 2.5 mg BID PO Last administered on 11/02/18at 08:38; Start 10/26/18 at 09:00; Stop 11/02/18 at 12:44; Status DC Aripiprazole (AbiLIFY) 5 mg BID PO Last administered on 11/03/18 09:09; Start 11/02/18 at 21:00 Home Med (Med Rec Complete!) ASDIRECTED XX ; Start 10/19/18 at 18:30; Stop 10/19/18 at 18:33; Status DC Hydroxyzine HCl (Atarax) 50 mg Q4HP PRN PO ANXIETY/AGITATION Last administered on 10/27/18 13:28; Start 10/27/18 at 13:15 Magnesium Hydroxide (Milk Of Magnesia) 30 ml DAILYPRN PRN PO CONSTIPATION Last administered on 10/31/18 13:08; Start 10/19/18 at 17:15 Sertraline HCl (Zoloft) 50 mg QHS PO Last administered on 10/24/18 21:40; Start 10/22/18 at 21:00; Stop 10/25/18 at 15:03; Status DC Sertraline HCl (Zoloft) 75 mg QHS PO Last administered on 10/26/18at 20:38; Start 10/25/18 at 21:00; Stop 10/27/18 at 18:08; Status DC Sertraline HCl (Zoloft) 100 mg QHS PO Last administered on 11/01/18 20:51; Start 10/27/18 at 21:00; Stop 11/02/18 at 12:44; Status DC Sertraline HCl (Zoloft) 150 mg QHS PO Last administered on 11/02/18 23:10; Start 11/02/18 at 21:00 Trazodone HCl (Desyrel) 50 mg QHSP PRN PO INSOMNIA Last administered on 10/31/18 20:10; Start 10/19/18 at 17:15; Stop 11/01/18 at 19:09; Status DC Trazodone HCl (Desyrel) 100 mg QHSP PRN PO INSOMNIA Last administered on 11/02/18 23:10; Start 11/01/18 at 19:15 Allergies Coded Allergies: No Known Allergies (Verified Allergy, Unknown, 10/19/18) GONZALEZ GLOVER MD November 03, 2018 13:38
--- NOTE | 2018-11-03 13:55 | MHIPNPDOC ---
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 He states that he now feels like he has no purpose & repeatedly used the word "trapped" when describing his life and how he feels. His supportive is here & both agree that they have a good marriage & he denies that their relationship is a source of his stress. He reports having plans for either causing [place], or purchasing a hunting rifle & killing himself via GSW. Patient reports being from [place], [place] & that [facility] was his first duty station. He says that he was very unhappy here & requested a year in [facility], just to get out. He states that following his year in [facility], instead of a new duty station, he was returned to [place]. This occured 3 months ago & admits that his depression & anxiety became evident again while in [facility], prior to his return here. In addition to the depression & SI, he describes suffering from significant anxiety. This included frequently awakening at night during sleep, allowing his phone battery to so that his unit can't reach him on the weekend & general anxiety that comes & goes." VITAL SIGNS: See below. NEW TEST RESULTS: See below CURRENT MEDICATIONS: See below. MENTAL STATUS EXAMINATION: Patient is a 23-year old male, who is alert, cooperative, dressed in personal clothes, looking tired, looking a if he has not had a shower. Speech: Is normal rate, tone and volume. less talkative Language skills are fair Thought processes including: depressed, anxious, linear Thought content:anxious and depressive thoughts, cognitive distortions, passive thoughts of suicide Description of abnormal or psychotic thoughts: Passive SI, no HI, no paranoid thoughts today. Denies AV hallucinations Judgment: poor Insight: poor Orientation: x 4 Recent and remote memory: intact Attention span and concentration: fair Language: normal Fund of knowledge: average Mood: depressed/anxious Affect: congruent with mood, depressed DIAGNOSES: 1. Major Depressive Disorder, severe, recurrent with psychosis 2. ETOH use disorder 3. Other specified trauma/stressor disorder ASSESSMENT: The patient says he eels the same as he felt yesterday. he says that he has been thinking about returning to the [employer] or not, another option would be going to the [employer], because it would be less stressful for him, plus he could possibly relocate in [place]. Even when he is denying feeling stressed today, he looks anxious, it seems as if he was scratching his skin, his hygiene and attire are neglected. MANAGEMENT PLAN: As above TIME SPENT: 20 minutes. Vital Signs Vital Signs Date Time Temp Pulse Resp B/P (MAP) Pulse Ox O2 Delivery O2 Flow Rate FiO2 11/03/18 07:00 97.6 65 14 116/58 (77) Current Medications Current Medications Acetaminophen (Tylenol Tab) 650 mg Q6HP PRN PO HEADACHE or DISCOMFORT; Start 10/19/18 at 17:15 Al Hydrox/Mg Hydrox/Simethicone (Mylanta) 30 ml Q4HP PRN PO HEARTBURN/INDIGESTION; Start 10/19/18 at 17:15 Aripiprazole (AbiLIFY) 2 mg QAM PO Last administered on 10/25/18at 09:05; Start 10/24/18 at 09:00; Stop 10/25/18 at 15:03; Status DC Aripiprazole (AbiLIFY) 2 mg QHS PO Last administered on 10/22/18at 22:15; Start 10/22/18 at 21:00; Stop 10/23/18 at 14:46; Status DC Aripiprazole (AbiLIFY) 2.5 mg BID PO Last administered on 10/25/18at 22:14; Start 10/25/18 at 21:00; Stop 10/26/18 at 09:36; Status DC Aripiprazole (AbiLIFY) 2.5 mg BID PO Last administered on 11/02/18at 08:38; Start 10/26/18 at 09:00; Stop 11/02/18 at 12:44; Status DC Aripiprazole (AbiLIFY) 5 mg BID PO Last administered on 11/03/18at 09:09; Start 11/02/18 at 21:00 Home Med (Med Rec Complete!) ASDIRECTED XX ; Start 10/19/18 at 18:30; Stop 10/19/18 at 18:33; Status DC Hydroxyzine HCl (Atarax) 50 mg Q4HP PRN PO ANXIETY/AGITATION Last administered on 10/27/18 13:28; Start 10/27/18 at 13:15 Magnesium Hydroxide (Milk Of Magnesia) 30 ml DAILYPRN PRN PO CONSTIPATION Last administered on 10/31/18 13:08; Start 10/19/18 at 17:15 Sertraline HCl (Zoloft) 50 mg QHS PO Last administered on 10/24/18 21:40; Start 10/22/18 at 21:00; Stop 10/25/18 at 15:03; Status DC Sertraline HCl (Zoloft) 75 mg QHS PO Last administered on 10/26/18 20:38; Start 10/25/18 at 21:00; Stop 10/27/18 at 18:08; Status DC Sertraline HCl (Zoloft) 100 mg QHS PO Last administered on 11/01/18at 20:51; Start 10/27/18 at 21:00; Stop 11/02/18 at 12:44; Status DC Sertraline HCl (Zoloft) 150 mg QHS PO Last administered on 11/02/18 23:10; Start 11/02/18 at 21:00 Trazodone HCl (Desyrel) 50 mg QHSP PRN PO INSOMNIA Last administered on 10/31/18 20:10; Start 10/19/18 at 17:15; Stop 11/01/18 at 19:09; Status DC Trazodone HCl (Desyrel) 100 mg QHSP PRN PO INSOMNIA Last administered on 11/02/18 23:10; Start 11/01/18 at 19:15 Allergies Coded Allergies: No Known Allergies (Verified Allergy, Unknown, 10/19/18) GONZALEZ GLOVER MD November 03, 2018 13:55
[2018-11-03 18:39] VITALS: BP 138/84
[2018-11-03] MEDS: SERTRALINE HCL 50 MG TAB PO SCH (20:14)
[2018-11-03] MEDS: traZODone 100 MG TAB PO PRN (23:36)
[2018-11-04 06:41] VITALS: BP 115/58
--- NOTE | 2018-11-04 13:20 | MHIPNPDOC ---
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 VITAL SIGNS: See below. NEW TEST RESULTS: None. CURRENT MEDICATIONS: See below. MENTAL STATUS EXAMINATION: Patient is a 20-year old male, who is scheduled for long-term treatment. Speech: Is. Normal. Language skills are adequate. Thought processes including:. Denies hallucinations, delusions, obsessions, compulsions, phobias. Thought content:, As above. Abstract reasoning, and computation:, Intact. Description of associations: Loose association. Description of abnormal or psychotic thoughts:. No psychotic thought. At this time. Judgment:. Poor. Insight: Limited. Orientation: Full. Recent and remote memory: Intact. Attention span and concentration: Intact. Language: No disturbance. Fund of knowledge: Full. Mood: Sad. Affect:, Congruent. DIAGNOSES: 1. Major depressive illness. 2., Work stress. 3. Situational stress. ASSESSMENT: Major depressive illness patient is preparing to go to long-term treatment MANAGEMENT PLAN: As per Dr. Henry team. TIME SPENT: 30 minutes. Vital Signs Vital Signs Date Time Temp Pulse Resp B/P (MAP) Pulse Ox O2 Delivery O2 Flow Rate FiO2 11/04/18 06:41 97.7 49 14 115/58 (77) Current Medications Current Medications Acetaminophen (Tylenol Tab) 650 mg Q6HP PRN PO HEADACHE or DISCOMFORT; Start 10/19/18 at 17:15 Al Hydrox/Mg Hydrox/Simethicone (Mylanta) 30 ml Q4HP PRN PO HEARTBURN/INDIGESTION; Start 10/19/18 at 17:15 Aripiprazole (AbiLIFY) 2 mg QAM PO Last administered on 10/25/18at 09:05; Start 10/24/18 at 09:00; Stop 10/25/18 at 15:03; Status DC Aripiprazole (AbiLIFY) 2 mg QHS PO Last administered on 10/22/18at 22:15; Start 10/22/18 at 21:00; Stop 10/23/18 at 14:46; Status DC Aripiprazole (AbiLIFY) 2.5 mg BID PO Last administered on 10/25/18at 22:14; Start 10/25/18 at 21:00; Stop 10/26/18 at 09:36; Status DC Aripiprazole (AbiLIFY) 2.5 mg BID PO Last administered on 11/02/18 08:38; Start 10/26/18 at 09:00; Stop 11/02/18 at 12:44; Status DC Aripiprazole (AbiLIFY) 5 mg BID PO Last administered on 11/04/18at 08:33; Start 11/02/18 at 21:00 Home Med (Med Rec Complete!) ASDIRECTED XX ; Start 10/19/18 at 18:30; Stop 10/19/18 at 18:33; Status DC Hydroxyzine HCl (Atarax) 50 mg Q4HP PRN PO ANXIETY/AGITATION Last administered on 10/27/18 13:28; Start 10/27/18 at 13:15 Magnesium Hydroxide (Milk Of Magnesia) 30 ml DAILYPRN PRN PO CONSTIPATION Last administered on 10/31/18 13:08; Start 10/19/18 at 17:15 Sertraline HCl (Zoloft) 50 mg QHS PO Last administered on 10/24/18at 21:40; Start 10/22/18 at 21:00; Stop 10/25/18 at 15:03; Status DC Sertraline HCl (Zoloft) 75 mg QHS PO Last administered on 10/26/18at 20:38; Start 10/25/18 at 21:00; Stop 10/27/18 at 18:08; Status DC Sertraline HCl (Zoloft) 100 mg QHS PO Last administered on 11/01/18at 20:51; Start 10/27/18 at 21:00; Stop 11/02/18 at 12:44; Status DC Sertraline HCl (Zoloft) 150 mg QHS PO Last administered on 11/03/18 20:14; Start 11/02/18 at 21:00 Trazodone HCl (Desyrel) 50 mg QHSP PRN PO INSOMNIA Last administered on 10/31/18 20:10; Start 10/19/18 at 17:15; Stop 11/01/18 at 19:09; Status DC Trazodone HCl (Desyrel) 100 mg QHSP PRN PO INSOMNIA Last administered on 11/03/18at 23:36; Start 11/01/18 at 19:15 Allergies Coded Allergies: No Known Allergies (Verified Allergy, Unknown, 10/19/18) A-FIB/CHADSVASC A-FIB History Current/History of A-Fib/PAF?: No Age/Risk Factor Scoring CHADSVASC: CHADSVASC Response (Comments) Value Age Risk Factor Age < 65 years old 0 Gender Risk Factor Male 0 Hx of CHF No 0 Hx of HTN No 0 Hx of Stroke/TIA/or VTE No 0 Hx of Diabetes No 0 Hx of Vascular Disease No 0 Total 0 Treatment Treatment ordered: NONE GLADYS HENSON MD November 04, 2018 13:20
[2018-11-04 18:28] VITALS: BP 138/72
[2018-11-04] MEDS: SERTRALINE HCL 50 MG TAB PO SCH (20:51)
[2018-11-04] MEDS: traZODone 100 MG TAB PO PRN (20:51)
[2018-11-05 06:34] VITALS: BP 114/56
--- NOTE | 2018-11-05 15:09 | MHIPNPDOC ---
[facility] Progress Note Progress Note DATE OF SERVICE: 11/05/18 HISTORY: 23-year-old male unhappy in the [employer] with marital difficulties. VITAL SIGNS: See below. NEW TEST RESULTS: None. CURRENT MEDICATIONS: See below. MENTAL STATUS EXAMINATION: Patient is a when he for-year old male, who is presently under the treatment of Dr Henry. Speech: Is, normal. Language skills are adequate. Thought processes including:. Denies hallucinations, delusions, obsessions, compulsions, phobias. Thought content:, As above. Abstract reasoning, and computation:, Able to abstract. Description of associations:. No loose associations. Description of abnormal or psychotic thoughts:. No psychotic for. Judgment: Good. Insight: Improvement. Orientation:, Full. Recent and remote memory: Intact. Attention span and concentration:. Intact. Language: As above. Fund of knowledge:, Full. Mood: Good. Affect:, Congruent. DIAGNOSES: 1. Major depressive illness. 2.. Occupational difficulties. 3.. marital stress. ASSESSMENT: As above MANAGEMENT PLAN:. As per treatment team. TIME SPENT: 30 minutes. Vital Signs Vital Signs Date Time Temp Pulse Resp B/P (MAP) Pulse Ox O2 Delivery O2 Flow Rate FiO2 11/05/18 06:34 97.5 53 14 114/56 (75) Current Medications Current Medications Acetaminophen (Tylenol Tab) 650 mg Q6HP PRN PO HEADACHE or DISCOMFORT; Start 10/19/18 at 17:15 Al Hydrox/Mg Hydrox/Simethicone (Mylanta) 30 ml Q4HP PRN PO HEARTBURN/INDIGESTION; Start 10/19/18 at 17:15 Aripiprazole (AbiLIFY) 2 mg QAM PO Last administered on 10/25/18at 09:05; Start 10/24/18 at 09:00; Stop 10/25/18 at 15:03; Status DC Aripiprazole (AbiLIFY) 2 mg QHS PO Last administered on 10/22/18at 22:15; Start 10/22/18 at 21:00; Stop 10/23/18 at 14:46; Status DC Aripiprazole (AbiLIFY) 2.5 mg BID PO Last administered on 10/25/18at 22:14; Start 10/25/18 at 21:00; Stop 10/26/18 at 09:36; Status DC Aripiprazole (AbiLIFY) 2.5 mg BID PO Last administered on 11/02/18 08:38; Start 10/26/18 at 09:00; Stop 11/02/18 at 12:44; Status DC Aripiprazole (AbiLIFY) 5 mg BID PO Last administered on 11/05/18 08:36; Start 11/02/18 at 21:00 Home Med (Med Rec Complete!) ASDIRECTED XX ; Start 10/19/18 at 18:30; Stop 10/19/18 at 18:33; Status DC Hydroxyzine HCl (Atarax) 50 mg Q4HP PRN PO ANXIETY/AGITATION Last administered on 10/27/18 13:28; Start 10/27/18 at 13:15 Magnesium Hydroxide (Milk Of Magnesia) 30 ml DAILYPRN PRN PO CONSTIPATION Last administered on 10/31/18 13:08; Start 10/19/18 at 17:15 Sertraline HCl (Zoloft) 50 mg QHS PO Last administered on 10/24/18at 21:40; Start 10/22/18 at 21:00; Stop 10/25/18 at 15:03; Status DC Sertraline HCl (Zoloft) 75 mg QHS PO Last administered on 10/26/18 20:38; Start 10/25/18 at 21:00; Stop 10/27/18 at 18:08; Status DC Sertraline HCl (Zoloft) 100 mg QHS PO Last administered on 11/01/18 20:51; Start 10/27/18 at 21:00; Stop 11/02/18 at 12:44; Status DC Sertraline HCl (Zoloft) 150 mg QHS PO Last administered on 11/04/18 20:51; Start 11/02/18 at 21:00 Trazodone HCl (Desyrel) 50 mg QHSP PRN PO INSOMNIA Last administered on 10/31/18 20:10; Start 10/19/18 at 17:15; Stop 11/01/18 at 19:09; Status DC Trazodone HCl (Desyrel) 100 mg QHSP PRN PO INSOMNIA Last administered on 11/04/18at 20:51; Start 11/01/18 at 19:15 Allergies Coded Allergies: No Known Allergies (Verified Allergy, Unknown, 10/19/18) A-FIB/CHADSVASC A-FIB History Current/History of A-Fib/PAF?: No Current Oral Anticoagulant The: No Age/Risk Factor Scoring CHADSVASC: CHADSVASC Response (Comments) Value Age Risk Factor Age < 65 years old 0 Gender Risk Factor Male 0 Hx of CHF No 0 Hx of HTN No 0 Hx of Stroke/TIA/or VTE No 0 Hx of Diabetes No 0 Hx of Vascular Disease No 0 Total 0 Treatment Treatment ordered: NONE GLADYS HENSON MD November 05, 2018 15:09
[2018-11-05 18:00] VITALS: BP 133/66
[2018-11-05] MEDS: SERTRALINE HCL 50 MG TAB PO SCH (21:37)
[2018-11-05] MEDS: traZODone 100 MG TAB PO PRN (23:03)
[2018-11-06 06:40] VITALS: BP 119/58
[2018-11-06 18:02] VITALS: BP 128/80
[2018-11-06] MEDS ORDERED: SERTRALINE 100 MG TAB PO ONE (21:00)
--- NOTE | 2018-11-06 21:02 | MHIPNPDOC ---
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 He states that he now feels like he has no purpose & repeatedly used the word "trapped" when describing his life and how he feels. His supportive is here & both agree that they have a good marriage & he denies that their relationship is a source of his stress. He reports having plans for either causing a MVC [place], or purchasing a hunting rifle & killing himself via GSW. Patient reports being from [place], [place] & that [facility] was his first duty station. He says that he was very unhappy here & requested a year in [facility], just to get out. He states that following his year in [facility], instead of a new duty station, he was returned to [place]. This occured 3 months ago & admits that his depression & anxiety became evident again while in [facility], prior to his return here. In addition to the depression & SI, he describes suffering from significant anxiety. This included frequently awakening at night during sleep, allowing his phone battery to so that his unit can't reach him on the weekend & general anxiety that comes & goes." VITAL SIGNS: See below. NEW TEST RESULTS: See below CURRENT MEDICATIONS: See below. MENTAL STATUS EXAMINATION: Patient is a 23-year old male, who is alert, cooperative, dressed in personal clothes, looking tired, looking a if he has not had a shower. Speech: Is normal rate, tone and volume, impoverished speech Language skills are fair Thought processes including: depressed, anxious, linear Thought content:anxious and depressive thoughts, cognitive distortions, passive thoughts of suicide Description of abnormal or psychotic thoughts: Passive SI, no HI, no paranoid thoughts today. Denies AV hallucinations Judgment: poor Insight: poor Orientation: x 4 Recent and remote memory: intact Attention span and concentration: fair Language: normal Fund of knowledge: average Mood: depressed/anxious Affect: congruent with mood, depressed DIAGNOSES: 1. Major Depressive Disorder, severe, recurrent with psychosis 2. ETOH use disorder 3. Other specified trauma/stressor disorder ASSESSMENT: The patient continues to be depressed, he continues to report marital problems, he says that he feels his is not happy because he is at the hospital and he just came from [place] and she was 6 months by herself. this typewriter operator automatic explains that wives should be able to understand that their husbands will be away from home, that is part of a soldiers life. He tells me that if it wouldn't be for her, he would have killed himself because his higher ups are "not nice" when they talk to him. He says he would have killed himself if he wouldn't have his because "I don't have anybody else" and at that time this typewriter operator automatic asked him "don't you have friends?" and he told me: "Oh, yes, I have friends.... but is not the same type of relationship" and once again I told him that this is too much for his to deal with, for her to be responsible for his life, that he should try not to be that dependant on her, but he continues to be very depressed. I will increase his medications. MANAGEMENT PLAN: As above TIME SPENT: 20 minutes. Vital Signs Vital Signs Date Time Temp Pulse Resp B/P (MAP) Pulse Ox O2 Delivery O2 Flow Rate FiO2 11/06/18 18:02 98.9 94 14 128/80 (96) Current Medications Current Medications Acetaminophen (Tylenol Tab) 650 mg Q6HP PRN PO HEADACHE or DISCOMFORT; Start 10/19/18 at 17:15 Al Hydrox/Mg Hydrox/Simethicone (Mylanta) 30 ml Q4HP PRN PO HEARTBURN/INDIGESTION; Start 10/19/18 at 17:15 Aripiprazole (AbiLIFY) 2 mg QAM PO Last administered on 10/25/18at 09:05; Start 10/24/18 at 09:00; Stop 10/25/18 at 15:03; Status DC Aripiprazole (AbiLIFY) 2 mg QHS PO Last administered on 10/22/18at 22:15; Start 10/22/18 at 21:00; Stop 10/23/18 at 14:46; Status DC Aripiprazole (AbiLIFY) 2.5 mg BID PO Last administered on 10/25/18at 22:14; Start 10/25/18 at 21:00; Stop 10/26/18 at 09:36; Status DC Aripiprazole (AbiLIFY) 2.5 mg BID PO Last administered on 11/02/18at 08:38; Start 10/26/18 at 09:00; Stop 11/02/18 at 12:44; Status DC Aripiprazole (AbiLIFY) 5 mg BID PO Last administered on 11/06/18at 08:48; Start 11/02/18 at 21:00 Home Med (Med Rec Complete!) ASDIRECTED XX ; Start 10/19/18 at 18:30; Stop 10/19/18 at 18:33; Status DC Hydroxyzine HCl (Atarax) 50 mg Q4HP PRN PO ANXIETY/AGITATION Last administered on 10/27/18 13:28; Start 10/27/18 at 13:15 Magnesium Hydroxide (Milk Of Magnesia) 30 ml DAILYPRN PRN PO CONSTIPATION Last administered on 10/31/18 13:08; Start 10/19/18 at 17:15 Sertraline HCl (Zoloft) 50 mg QHS PO Last administered on 10/24/18 21:40; Start 10/22/18 at 21:00; Stop 10/25/18 at 15:03; Status DC Sertraline HCl (Zoloft) 75 mg QHS PO Last administered on 10/26/18at 20:38; Start 10/25/18 at 21:00; Stop 10/27/18 at 18:08; Status DC Sertraline HCl (Zoloft) 100 mg QHS PO Last administered on 11/01/18at 20:51; Start 10/27/18 at 21:00; Stop 11/02/18 at 12:44; Status DC Sertraline HCl (Zoloft) 150 mg QHS PO Last administered on 11/05/18 21:37; Start 11/02/18 at 21:00 Trazodone HCl (Desyrel) 50 mg QHSP PRN PO INSOMNIA Last administered on 20:10; Start 10/19/18 at 17:15; Stop 11/01/18 at 19:09; Status DC Trazodone HCl (Desyrel) 100 mg QHSP PRN PO INSOMNIA Last administered on 11/05/18at 23:03; Start 11/01/18 at 19:15 Allergies Coded Allergies: No Known Allergies (Verified Allergy, Unknown, 10/19/18) A-FIB/CHADSVASC A-FIB History Current/History of A-Fib/PAF?: No Current Oral Anticoagulant The: No Age/Risk Factor Scoring CHADSVASC: CHADSVASC Response (Comments) Value Age Risk Factor Age < 65 years old 0 Gender Risk Factor Male 0 Hx of CHF No 0 Hx of HTN No 0 Hx of Stroke/TIA/or VTE No 0 Hx of Diabetes No 0 Hx of Vascular Disease No 0 Total 0 Treatment Treatment ordered: NONE Reason Anticoagulant not given: Not indicated/[id number] GONZALEZ GLOVER MD November 06, 2018 21:02
[2018-11-06] MEDS: traZODone 100 MG TAB PO PRN (22:48)
[2018-11-07 06:34] VITALS: BP 121/84
[2018-11-07] MEDS: PILL CRUSHER/CUTTER 1 EACH XX PRN (08:57)
[2018-11-07] MEDS: hydrOXYzine 50 MG TAB PO PRN (09:31)
--- NOTE | 2018-11-07 13:43 | MHIPNPDOC ---
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 He states that he now feels like he has no purpose & repeatedly used the word "trapped" when describing his life and how he feels. His supportive is here & both agree that they have a good marriage & he denies that their relationship is a source of his stress. He reports having plans for either causing [place], or purchasing a hunting rifle & killing himself via GSW. Patient reports being from [place], [place] & that [facility] was his first duty station. He says that he was very unhappy here & requested a year in [facility], just to get out. He states that following his year in [facility], instead of a new duty station, he was returned to [place]. This occured 3 months ago & admits that his depression & anxiety became evident again while in [facility], prior to his return here. In addition to the depression & SI, he describes suffering from significant anxiety. This included frequently awakening at night during sleep, allowing his phone battery to so that his unit can't reach him on the weekend & general anxiety that comes & goes." VITAL SIGNS: See below. NEW TEST RESULTS: See below CURRENT MEDICATIONS: See below. MENTAL STATUS EXAMINATION: Patient is a 23-year old male, who is alert, cooperative, dressed in personal clothes, looking tired, looking a if he has not had a shower. Speech: Is normal rate, tone and volume, but impoverished, he is not talkative, seems to have thought blocking at times Language skills are fair Thought processes including: depressed, anxious, blocked at times Thought content:anxious and depressive thoughts, cognitive distortions, passive thoughts of suicide, self deprecatory thoughts about himself Description of abnormal or psychotic thoughts: Passive SI, no HI, no paranoid thoughts today. Denies AV hallucinations Judgment: poor Insight: poor Orientation: x 4 Recent and remote memory: intact Attention span and concentration: poor, he is constantly thinking about his problems, self consumed about his anxiety and depression. It affects his attention and concentration Language: normal Fund of knowledge: average Mood: depressed/anxious Affect: congruent with mood, depressed DIAGNOSES: 1. Other specified mood disorder, r/o bipolar 2 disorder 2. ETOH use disorder 3. Other specified trauma/stressor disorder ASSESSMENT: The patient continues to be very depressed, it i hard for him to keep focused because he constantly thinks about his depression, his anxiety and his fear of losing his . We talked about co dependence and why he should not depend so much on his to be happy, why it i so important to make friends, to go out with his friends. when he said good by to me, knowing that he is leaving tomorrow [facility] [place] [facility], I asked him if he promised me he was going to be OK, he told me "I will tray , thanks for everything". I still believe that the patient is high risk. We have discussed previously about manic symptoms and he said he had felt like being manic in the past but he said he stayed awak Fridays and Saturdays, not exactly because he had a lot of energy but because he forced himself to stay awake, however, he said he was able to manage to go throuhg his daily activities next day. The fact that he is not responding as expected to medications, might be because he is bipolar and for that reason I have increased his Abilify to 7.5 mgs PO BID and his Zoloft to 200 mgs. he will be leaing for [facility] tomorow and he just left on a pass to go pack his belongings, he was escorted by his JAMILA MANAGEMENT PLAN: As above TIME SPENT: 20 minutes. Vital Signs Vital Signs Date Time Temp Pulse Resp B/P (MAP) Pulse Ox O2 Delivery O2 Flow Rate FiO2 11/07/18 08:32 Room Air 11/07/18 06:34 97.6 61 12 121/84 (96) Current Medications Current Medications Acetaminophen (Tylenol Tab) 650 mg Q6HP PRN PO HEADACHE or DISCOMFORT; Start 10/19/18 at 17:15 Al Hydrox/Mg Hydrox/Simethicone (Mylanta) 30 ml Q4HP PRN PO HEARTBURN/INDIGESTION; Start 10/19/18 at 17:15 Aripiprazole (AbiLIFY) 2 mg QAM PO Last administered on 10/25/18at 09:05; Start 10/24/18 at 09:00; Stop 10/25/18 at 15:03; Status DC Aripiprazole (AbiLIFY) 2 mg QHS PO Last administered on 10/22/18 22:15; Start 10/22/18 at 21:00; Stop 10/23/18 at 14:46; Status DC Aripiprazole (AbiLIFY) 2.5 mg BID PO Last administered on 10/25/18at 22:14; Start 10/25/18 at 21:00; Stop 10/26/18 at 09:36; Status DC Aripiprazole (AbiLIFY) 2.5 mg BID PO Last administered on 11/02/18 08:38; Start 10/26/18 at 09:00; Stop 11/02/18 at 12:44; Status DC Aripiprazole (AbiLIFY) 5 mg BID PO Last administered on 11/06/18at 08:48; Start 11/02/18 at 21:00; Stop 11/06/18 at 21:04; Status DC Aripiprazole (AbiLIFY) 7.5 mg BID PO Last administered on 11/07/18at 08:58; Start 11/07/18 at 09:00 Home Med (Med Rec Complete!) ASDIRECTED XX ; Start 10/19/18 at 18:30; Stop 10/19/18 at 18:33; Status DC Hydroxyzine HCl (Atarax) 50 mg Q4HP PRN PO ANXIETY/AGITATION Last administered on 11/07/18 09:31; Start 10/27/18 at 13:15 Magnesium Hydroxide (Milk Of Magnesia) 30 ml DAILYPRN PRN PO CONSTIPATION Last administered on 10/31/18at 13:08; Start 10/19/18 at 17:15 Sertraline HCl (Zoloft) 50 mg QHS PO Last administered on 10/24/18 21:40; Start 10/22/18 at 21:00; Stop 10/25/18 at 15:03; Status DC Sertraline HCl (Zoloft) 75 mg QHS PO Last administered on 10/26/18 20:38; Start 10/25/18 at 21:00; Stop 10/27/18 at 18:08; Status DC Sertraline HCl (Zoloft) 100 mg QHS PO Last administered on 11/01/18at 20:51; St art 10/27/18 at 21:00; Stop 11/02/18 at 12:44; Status DC Sertraline HCl (Zoloft) 150 mg QHS PO Last administered on 11/05/18at 21:37; Start 11/02/18 at 21:00; Stop 11/06/18 at 21:03; Status DC Sertraline HCl (Zoloft) 200 mg QHS PO ; Start 11/07/18 at 21:00; Stop 11/07/18 at 21:00; Status DC Trazodone HCl (Desyrel) 50 mg QHSP PRN PO INSOMNIA Last administered on 10/31/18at 20:10; Start 10/19/18 at 17:15; Stop 11/01/18 at 19:09; Status DC Trazodone HCl (Desyrel) 100 mg QHSP PRN PO INSOMNIA Last administered on 11/06/18at 22:48; Start 11/01/18 at 19:15 Allergies Coded Allergies: No Known Allergies (Verified Allergy, Unknown, 10/19/18) A-FIB/CHADSVASC A-FIB History Current/History of A-Fib/PAF?: No Current Oral Anticoagulant The: No Age/Risk Factor Scoring CHADSVASC: CHADSVASC Response (Comments) Value Age Risk Factor Age < 65 years old 0 Gender Risk Factor Male 0 Hx of CHF No 0 Hx of HTN No 0 Hx of Stroke/TIA/or VTE No 0 Hx of Diabetes No 0 Hx of Vascular Disease No 0 Total 0 Treatment Treatment ordered: NONE Reason Anticoagulant not given: Not indicated/[id number] GONZALEZ GLOVER MD November 07, 2018 13:43
[2018-11-07] MEDS ORDERED: HYDRO50TAB PO (16:52)
[2018-11-07] MEDS ORDERED: TRAZ10TA PO (16:52)
[2018-11-07] MEDS ORDERED: ZOLO100T PO (16:52)
[2018-11-07] MEDS ORDERED: ABIL1TAB11 PO (16:52)
[2018-11-07] MEDS ORDERED: SERTRALINE 100 MG TAB PO SCH (21:00)
[2018-11-07] MEDS: traZODone 100 MG TAB PO PRN (23:07)
[2018-11-08 06:40] VITALS: BP 132/85
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
== END 2018-11-08 06:26 | DRG 885 ==
LOC: M ED 12:42 → M ED INP 17:01 → M PSY 19:04
PROVIDERS: ADMIT Psychiatry & Neurology Psychiatry; ATTEND Psychiatry & Neurology Psychiatry
DX: F39 Unspecified mood [affective] disorder (principal); F10.10 Alcohol abuse, uncomplicated; F31.81 Bipolar II disorder; F60.3 Borderline personality disorder; E66.9 Obesity, unspecified